=== PATIENT | female | born 1965 | race Caucasian/White ===

== ENCOUNTER 2020-09-30 08:08 | Emergency (ER) | payer BC ==
[~2020-09-30] VITALS: Ht 170.2 cm; Wt 101.7 kg
--- NOTE | 2020-09-30 08:54 | RAD ---
Examination: 1. Left elbow 2 views. 2. Left forearm 1 view. 3. Left wrist 2 views. INDICATION: Left arm pain after fall FINDINGS: 2 views of the left wrist show an ossific density overlying the ulnar styloid process that could refl ect a chronic ulnar styloid process fracture. Alignment is normal and no acute fracture of the wrist is apparent. Normal osseous mineralization. Soft tissues are unremarkable. Single AP view of the left forearm show no fracture or dislocation. Soft tissues are unremarkable. 2 views of the left elbow show no fracture or malalignment. Nonspecific anterior fat pad sign is appa rent on the lateral view. IMPRESSION: 1. No acute fracture or malalignment in the left elbow, forearm or wrist shown by x-ray. 2. There is evidence of old injury to the ulnar styloid process and nonspecific anterior fat pad sign at the elbow that could reflect a small joint effusion. Electronically signed by: Deejay Nguyen MD (09/30/2020 8:52 AM) [id number]
--- NOTE | 2020-09-30 09:04 | PHYS DOC ---
Past History Past Medical History: GERD, Other Additional Past Medical Histor: Binge eating disorder Past Surgical History: Hysterectomy, Oophorectomy, Other Additional Past Surgical Histo: gastric bypass Additional Smoking Information: vaps Alcohol Use: Occasionally Adult General Chief Complaint Chief Complaint: UPPER EXTREMITY INJURY [facility] HPI Patient is a 54 year old female who presents to the Emergency Room after a fall. Patient tripped over a curb while walking to her car 2 hours ago. She caught herself with her L arm. She is having aching in her elbow when she turns it over. She has pain from her wrist to elbow laterally. She denies hitting her head. Denies any other injuries. Review of Systems Review of Systems Complete ROS is negative unless otherwise documented in HPI Allergies Allergies Allergies Coded Allergies Type Severity Reaction Last Updated Verified Sulfa (Sulfonamide Antibiotics) Allergy Unknown Hives 09/30/20 Yes Physical Exam Physical Exam General: Awake, alert, NAD. Well Nourished, well hydrated. Cooperative HEENT: Atraumatic, EOMI, PERRL, airway patent, moist oral mucosa Neck: Supple, trachea midline GI: Soft, nondistended, nontender, no masses MSK: L arm: no obvious signs of injuries, no swelling, no pinpoint tenderness, 2+ radial pulse, intact strength/sensation Skin: Warm, dry, intact Neuro: A&O x3, speech NL, sensory and motor grossly intact, no focal deficits Psych: Normal affect, normal mood, not suicidal or homicidal Current Patient Data Vital Signs Vital Signs Date Time Temp Pulse Resp B/P (MAP) Pulse Ox O2 Delivery O2 Flow Rate FiO2 09/30/20 08:10 98.1 70 18 121/66 (84) 96 Room Air EKG EKG [] Radiology/Procedures Radiology/Procedures [] Heart Score Risk Factors: Risk Factors: DM, Current or recent (<one month) smoker, HTN, HLP, family history of CAD, obesity. Risk Scores: Risk Factors: DM, Current or recent (<one month) smoker, HTN, HLP, family h istory of CAD, obesity. Course & Med Decision Making Course & Med Decision Making Pertinent Labs and Imaging studies reviewed. (See chart for details) Patient presents to the Emergency Room c/o arm pain after a fall. Xrays were ordered and are normal. Patient's test results and vitals while in the ED were fully reviewed and discussed with the patient. Patient is stable and at this time does not need admission to the hospital. We have discussed strict return precautions and the importance of following up with their Primary Care Physician. Patient stated understanding and was given an opportunity to ask any questions. Patient is in agreement with plan. Dragon Disclaimer Dragon Disclaimer This electronic medical record was generated, in whole or in part, using a voice recognition dictation system. Departure Departure: Impression: Primary Impression: Muscle strain Disposition: 01 DC HOME SELF CARE/HOMELESS Condition: STABLE Referrals: NON,STAFF (PCP) Patient Instructions: KRISH Andrew MD Sep 30, 2020 09:04
[2020-09-30 09:20] VITALS: BP 109/61
== END 2020-09-30 09:22 | disposition home or self-care (01) ==
LOC: ER 08:08
DX: S46.812A Strain of other muscles, fascia and tendons at shoulder and upper arm level, left arm, initial encounter (principal); M25.532 Pain in left wrist; M25.522 Pain in left elbow; K21.9 Gastro-esophageal reflux disease without esophagitis; Z90.710 Acquired absence of both cervix and uterus; Z90.89 Acquired absence of other organs; Z98.890 Other specified postprocedural states; Z88.2 Allergy status to sulfonamides; W01.0XXA Fall on same level from slipping, tripping and stumbling without subsequent striking against object, initial encounter; Y93.89 Activity, other specified; Y92.89 Other specified places as the place of occurrence of the external cause; Y99.8 Other external cause status
CPT/HCPCS: 73070; 73090; 73100; 99284